=== PATIENT | male | born 1990 | race Caucasian/White ===

== ENCOUNTER 2025-03-13 19:33 | Emergency (ER) | payer OTHER ==
[~2025-03-13] VITALS: Ht 185.4 cm; Wt 115.4 kg
[2025-03-13 20:10] VITALS: O2SAT 99
[2025-03-13] MEDS ORDERED: IBUP-2028 MT (22:14)
[2025-03-13] MEDS ORDERED: CEPH500C2 MT (22:14)
[2025-03-13] MEDS ORDERED: SULF1TAB48 MT (22:14)
[2025-03-13 22:21] VITALS: BP 145/93; PULSE 92; RESP 16; TEMP 36.9; O2SAT 99
== END 2025-03-13 22:23 | disposition home or self-care (01) ==
LOC: ER 19:33
DX: Z79.899 Other long term (current) drug therapy (principal); L02.212 Cutaneous abscess of back [any part, except buttock and flank]
CPT/HCPCS: 99283